=== PATIENT | female | born 1980 | race Caucasian/White ===

== ENCOUNTER 2016-11-30 16:56 | Outpatient (CLI) | payer OTHER ==
--- NOTE | 2016-11-30 17:36 | DIAGNOSTIC IMAGING REPORT ---
PROCEDURE: XR LUMBAR SPINE 2 OR 3 VIEWS INDICATION: ACUTE MIDLINE LOW BACK PAIN TECHNIQUE: Three views. COMPARISON: None. FINDINGS: Normal alignment without fracture. Loss of lordosis. Mild L5-S1 disc space narrowing. Soft tissues are unremarkable. IMPRESSION: 1. Mild L5-S1 disc space narrowing 2. Loss of lordosis suggestive of muscular spasm.
--- NOTE | 2016-11-30 17:38 | DIAGNOSTIC IMAGING REPORT ---
PROCEDURE: XR SACRUM AND COCCYX INDICATION: ACUTE MIDLINE LOW BACK PAIN TECHNIQUE: Three views. COMPARISON: None. FINDINGS: Osseous structures are normal. No evidence of fracture. IMPRESSION: 1. Normal sacrum and coccyx.
== END 2016-11-30 23:00 ==
LOC: XR SRH 16:56
DX: M51.37 Other intervertebral disc degeneration, lumbosacral region (principal)